=== PATIENT | female | born 1995 | race African-American/Black ===

== ENCOUNTER 2017-09-04 22:09 | Emergency (ER) | payer MEDICAID ==
[~2017-09-04] VITALS: Ht 167.6 cm; Wt 68.0 kg
[2017-09-04 22:27] VITALS: BP 131/65
== END 2017-09-05 01:40 | disposition left against medical advice (07) ==
LOC: ER 09-05 00:28
DX: O26.891 Other specified pregnancy related conditions, first trimester (principal); R51 Headache; R11.2 Nausea with vomiting, unspecified; Z3A.11 11 weeks gestation of pregnancy; Z53.21 Procedure and treatment not carried out due to patient leaving prior to being seen by health care provider